=== PATIENT | female | born 1955 | race Caucasian/White ===

== ENCOUNTER 2018-01-15 07:50 | Day surgery (SDC) | payer OTHER ==
[2018-01-15] MEDS ORDERED: FENTAnyl 50 MCG/ML VIAL ×2 (10:04→12:34)
[2018-01-15] MEDS ORDERED: MIDAZOLAM 1 MG/ML 2 ML INJ (10:04)
== END 2018-01-15 11:54 | disposition home or self-care (01) ==
LOC: GIL 07:50
DX: Z12.11 Encounter for screening for malignant neoplasm of colon (principal); K29.50 Unspecified chronic gastritis without bleeding; K64.8 Other hemorrhoids; I10 Essential (primary) hypertension
CPT/HCPCS: 43239; 88305; 88312